=== PATIENT | male | born 1965 | race Caucasian/White ===

== ENCOUNTER 2017-04-02 14:30 | Inpatient (IN) | payer OTHER ==
[~2017-04-02] VITALS: Ht 188 cm; Wt 93.0 kg
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
--- NOTE | ~2017-04-02 | EKG ---
[address] [address] ELECTROCARDIOGRAM REPORT Name: AGNES CARPENTER Room #: 150-[facility] IN .R.#: [id number] Admission: 04/03/17 Attend Phys: Gomez Powers MD, F Discharge: 04/03/17 Date of : 61 Report #: [id number] THIS REPORT FOR: //name// [facility] Test Date: 2017-04-03 Test Time: 10:13:46 Pat Name: AGNES CARPENTER Department: Room: [facility] Gender: M Gas Singer: LY : 1965 Requested By: José Antonio Molina Order Number: [id number] MD: Ravi Gupta Measurements Intervals [place] Rate: 69 P: 35 DE: 188 QRS: 4 QRSD: 84 T: 33 QT: 381 QTc: 408 Interpretive Statements Sinus rhythm No significant abnormality No previous ECG available for comparison Electronically Signed On 04-04-2017 17:22:58 CDT by Ravi Gupta [email or web address] <ELECTRONICALLY SIGNED> By: Ravi Gupta MD, [facility] 04/04/17 1722 1013 1013 Ravi Gupta MD, FACC /EPI
[~2017-04-02 14:30] MED LIST: ALPRAZOLAM 0.0.25 MG PO; APAP650 PO; ATIVAN1 MG PO; BISACODYL SUPP10 MG RECTAL; BUSPIRONE HCL10 MG PO; CEFEPIME HCL2 GM IVPB; COLACE100 MG PO; ENSURE ACTIVE237 ML PO; FENTANYL CITRATE1 GM TOP; FOLIC ACID1 MG PO; HEPARIN SO5000 UNIT2 SUBQ; MELATONIN5 M1 PO; MIRALAX17 GM PO; MULTIVITAMINS1 EAC7 PO; OXYCODONE HCL 55 MG PO; PROTONIX40 M4 PO; SENNA8.6 MG PO; VANCOMYCIN HCL 11 G2 IVPB; VITAMINC500 PO; WELLBUTRIN 75 M75 M1 PO
[2017-04-03 10:18] LABS: HEMATOCRIT 35.1 % (42.0-52.0); HEMOGLOBIN 11.2 gm/dL (14.0-18.0)
== END 2017-04-03 14:10 | DRG 981 ==
LOC: OR 14:30 → TBA 04-03 06:13 → EDBD 04-03 06:13 → EDSTATUS 04-03 09:42 → PRE 04-03 09:58 → TBA 04-03 14:10 → OR 04-03 15:37
PROVIDERS: Surgery
PROC: 0D1L0Z4 Bypass Transverse Colon to Cutaneous, Open Approach (ICD-10-PCS; principal; 2017-04-03)
DX: L89.224 Pressure ulcer of left hip, stage 4 (principal); I10 Essential (primary) hypertension; E66.9 Obesity, unspecified; Z88.1 Allergy status to other antibiotic agents
CPT/HCPCS: 50010; 50101; 50386; 51412; 52287; 56524; 56525; 56527; 56528; 56530; 57092; 62110; 62900; 70005